=== PATIENT | male | born 1985 | race Caucasian/White ===

== ENCOUNTER 2018-06-13 05:52 | Inpatient (IN) ==
[2018-06-14] MEDS ORDERED: Aluminum/Magnesium/Simethacone Susp 30 ML UDC PO PRN (02:54)
[2018-06-14] MEDS ORDERED: Acetaminophen 325 MG Tablet PO PRN (02:54)
--- NOTE | 2018-06-14 07:48 | P.HPPSY ---
Provisional Diagnosis Admission Date: June 13, 2018 07:54 [place] I.: Major depressive disorder Competence Certification of Person's Competence To Provide Express and Informed Consent I have personally examined Dante Lu, a person being served at [facility] on, June 14, 2018 0734. Express and informed consent means consent voluntarily given in writing, by a competent person, after sufficient explanation and disclosure of the subject matter involved to enable the person to make a knowing and willful decision without any element of force, fraud, deceit, duress, or other form of constraint or coercion. This person is 18 years of age or older, is not now known to be incompetent to consent to treatment with a guardian advocate, and does not have a health care surrogate or proxy currently making medical treatment decisions. I have found this person to be one of the following: [xxx] Competent to provide express and informed consent, as defined above, for voluntary admission to this facility and is competent to provide express and informed consent for treatment. He/she has the consistent capacity to make well reasoned, willful, and knowing decisions concerning his or her medical or mental health treatment. The person fully and consistently understands the purpose of the admission for examination/placement and is fully capable of personally exercising all rights assured under [place] [] Incompetent to provide express and informed consent to voluntary admission, and this is incompetent to provide express and informed consent to treatment. The person must be transferred to involuntary status and a petition for a guardian advocate filed with the Circuit Court. [] Refusing to provide express and informed consent to voluntary admission but is competent to provide express and informed consent for treatment. The person must be discharged or transferred to involuntary status. Form shall be completed within 24 hours of a person's arrival at the receiving facility and filed in the clinical record of each person: 1. Admitted on a voluntary basis 2. Permitted to provide express and informed consent to his/her own treatment 3. Allowed to transfer from involuntary to voluntary status 4. Prior to permitting a person to consent to his or her own treatment after having been previously found incompetent to consent to treatment. History of Present Illness Capacity: Has capacity History of Present Illness: Patient is a 32-year-old man, , employed, domiciled with fianc and fianc's 2 children, with a past psychiatric history of depression, no previous psychiatric admissions, no previous suicide attempt or self- injurious behavior, no outpatient mental health provider, with no significant past medical history, substance use history significant for daily marijuana use , with the cocaine use, occasional alcohol use, who was transferred from local hospital under [facility] act due to recent suicide attempt which patient attempted to shoot himself in the head with a firearm but had jammed in the context of recent cocaine intoxication which patient was transferred to the inpatient psychiatry for further evaluation and management. As per [facility] act patient had reported having attempted to shoot himself in the head with a firearm but had jammed. Patient was found lying hospital bed noted B, cooperative. Patient states that he had run out of his depression medications specifically Prozac 4 weeks ago after having been on this medication for 2 months. Patient mentions having gone to the ER to request refills of his medications and had mentioned during evaluation of a suicide attempt a week prior when she had attempted to shoot himself with a firearm but had jammed. 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 Patient mentions having been feeling depressed since the loss of his son 7 years ago which he reports have not sought out treatment after his loss. He mentions that it is oriented continues to contribute to his depression as well as fleeting suicidal ideation since that time. Patient reports having had suicide ideation and attempt on that occasion as stated above and has not resume to have suicide ideation since. Patient mentions that he believes that depression from the loss of his son along with recent cocaine intoxication had contributed to his suicide attempt. Patient reports sleeping well, good appetite energy concentration, reports his depression is usually 5 out of 10, denies any perceptional service of delusions, rest of psychiatric review of systems negative. Patient mentions having been visited by his fiance , currently wanted to resume his medications, worried about resuming his work upon discharge, continues to report feeling depressed with denying any suicide ideations at this time. Family psychiatric history: Denies Past psychiatric history: Previous psychiatric diagnoses depression, no prior psychiatric hospitalizations, no previous suicide attempts, no previous self- injurious behavior. Patient denies any history of abuse. Patient has no mental health outpatient mental health provider, patient reports previous medication trials include Prozac which was prescribed to him in the ER, had taken for 2 months and ran out 4 weeks ago as stated above. Substance use history: Tobacco use (+), occasional alcohol use, once per month, daily marijuana use, cocaine use once per week last time being for 5 days ago. Patient denies any recent detox or rehabilitation programs. Past medical history: Denies Allergies: NKDA Social history: Legally but currently , domiciled with jonathan and jonathan's 2 children, employed, denies any background, denies any access to firearms at this time which will need to be verified with josefina. - Inpatient Certification I certify that the inpatient services were ordered in accordance with Medicare regulations governing the order. This includes certification that hospital inpatient services are reasonable and necessary and in the case of services not specified as inpatient-only under 42 CFR 419.22(n), that they are appropriately provided as inpatient services in accordance to with the 2-midnight benchmark under 43 CFR 412.3(e) I certify that inpatient psychiatric hospital services are medically necessary. Evaluation and treatment and/or diagnostic testing are expected to improve the patient's condition. The patient needs on a daily basis, active treatment furnished directly by or requiring the supervision of inpatient psychiatric facility personnel. Estimated Total Length of Stay (Days): 5 Plans for Post Hospital Care: Home Review of Systems All other systems reviewed negative except as stated in HPI PMFSH - History History Provided By: Patient, Medical Record - Tobacco History Second Hand Smoke Exposure: No Smoking Status: Never smoker - Alcohol History How Often Do You Have a Drink Containing Alcohol: Never - Substance Use History Substance History: Active Abuse - Substance Use Type Marijuana Status: Active Route Used: Inhalation Reason for Use: Calm Down, Feels Good, Get High Quality Measures - Psychiatric History Psychological trauma history: Denies Violence risk to others in the last 6 months: Low Violence risk to self in the last 6 months: Elevated due to ongoing depression as well as previous suicide attempt. - Substance Abuse History Drug or alcohol use in the past 12 months: See HPI - Patient Strengths Patient's strengths (minimum of 2): Verbal and communicative Medications and Allergies Active Medications: Active Medications Acetaminophen (Tylenol) 650 mg PO Q4H PRN PRN Reason: Pain 1-5 or Temp >101F Al Hydrox/Mg Hydrox/Simethicone (Mag-Al Plus Susp Liq) 30 ml PO Q6H PRN PRN Reason: DYSPEPSIA Al Hydroxide/Mg Hydroxide (Milk Of Magnesia Liq) 30 ml PO Q12H PRN PRN Reason: Mild Constipation Diphenhydramine HCl (Benadryl) 50 mg PO HS PRN PRN Reason: INSOMNIA Diphenhydramine HCl (Benadryl Inj) 50 mg IM HS PRN PRN Reason: INSOMNIA Fluoxetine HCl (Prozac) 20 mg PO DAILY YVETTE Hydroxyzine HCl (Atarax) 50 mg PO Q6H PRN PRN Reason: ANXIETY Nicotine (Habitrol 21 Mg Patch.24 Hr) 1 patch T-DERMAL DAILY YVETTE Patch Removal (Remove Old Patch) 1 each T-DERMAL HS YVETTE Allergies Allergy/AdvReac Type Severity Reaction Status Date / Time No Known Allergies Allergy Unverified 06/13/18 13:23 Exam Vital signs: Vital Signs 06/13/18 09:59 06/13/18 17:54 06/13/18 17:58 Temperature 98.0 F Pulse Rate 72 84 84 Respiratory Rate 18 17 17 Blood Pressure 112/72 125/82 123/82 Pulse Oximetry 100 98 98 06/14/18 05:44 Temperature 97.7 F Pulse Rate 69 Respiratory Rate 17 Blood Pressure 130/71 Pulse Oximetry 99 Intake & Output 06/13/18 06/14/18 06/14/18 18:59 06:59 18:59 Weight 87.1 kg - Constitutional no acute distress, cooperative Mental Status Examination Appearance: Disheveled Consciousness: Alert Orientation: x4 Motor Activity: Normal gait Speech: Unremarkable Language: Adequate Fund of Knowledge: Inadequate Attention and Concentration: Adequate Memory: Unremarkable Mood: Sad Affect: Sad Thought Process & Associations: Intact, Linear Thought Content: Appropriate Hallucination Type: None Delusion Type: None Suicidal Ideation: Yes (Denies at this time) Suicidal Plan: No Suicidal Intention: No Homicidal Ideation: No Homicidal Plan: No Homicidal Intention: No Insight: Fair Judgment: Impulsive Assessment and Plan - Assessment (1) Major depressive disorder Code(s): F32.9 - Major depressive disorder, single episode, unspecified Status : Acute (2) Cannabis abuse, daily use Code(s): F12.10 - Cannabis abuse, uncomplicated Status: Acute (3) Cocaine use Code(s): F14.90 - Cocaine use, unspecified, uncomplicated Status: Acute - Plan Plan: Estimated LOS: [] days Patient is a 32-year-old man who carries diagnoses depression, no previous psychiatric admissions, no previous suicide attempt or self-injurious behavior, who was brought under Vela act after having reported a suicide attempt a week prior to his ED visit which she attempted to shoot himself with a firearm which the firearm had jammed it was transferred to the inpatient psychiatry for further further evaluation and management. Patient at this time noted to have significant stressors to include the loss of her son several years ago which she is currently attempting to cope with along with ongoing cocaine use and marijuana use which have contributed to his recent suicide attempt as well along with having run out of his medications. Patient will resume fluoxetine 20 mg p.o. daily for depression, we will have diphenhydramine 50 mg p.o. at bedtime as needed insomnia as well as hydroxyzine 50 mg every 6 hours as needed anxiety. Collateral formation pending. Social work intervention for psychosocial assessment. We will transfer patient to 26[address] unit , as patient appropriate for this unit. Continue to monitor mood and behavior. Patient agrees to sign voluntary admission, has capacity to consent for treatment. Discharge planning a progress. Justification for Continued Inpatient Stay: At risk of further decompensation a lower level of care. (1) Major depressive disorder Qualifiers: Major depression recurrence: single episode Active/Remission status: currently active Major depression episode severity: severe Psychotic features : without psychotic features Qualified Code(s): F32.2 - Major depressive disorder, single episode, severe without psychotic features
[2018-06-14] MEDS: FLUoxetine 20 MG Capsule PO SCH (09:42)
[2018-06-15] MEDS: FLUoxetine 20 MG Capsule PO SCH (09:44)
[2018-06-15 11:03] LABS: Calcium 8.5 mg/dL (8.5-10.1); Carbon Dioxide 27.3 meq/L (21.0-32.0); Potassium 3.9 meq/L (3.5-5.1)
[2018-06-15 11:06] LABS: Chol/HDL Ratio 5.96 Ratio
[2018-06-15 11:59] LABS: Hemoglobin A1c 5.7 % (4.3-6.0)
--- NOTE | 2018-06-15 12:43 | ECG ---
Date Performed: 06/14/2018 Time Performed: 12:27:46 PTAGE: 32 years EKG: Sinus rhythm POSSIBLE RIGHT VENTRICULAR CONDUCTION DELAY BORDERLINE ECG NO PREVIOUS TRACING DOCTOR: Balwinder Loya Interpretating Date/Time 06/15/2018 12:42:17
--- NOTE | 2018-06-15 14:03 | P.PNPSY ---
Subjective Remarks: Patient was seen and case discussed with nursing. Patient was just admitted for suicidal ideation with an attempt with a gun. Patient minimizes her suicide attempt and claims that the gun is "thrown in the garbage." He denies any other guns at home. He is perseverant on discharge. Mental Status Examination Appearance: Disheveled Consciousness: Alert Orientation: x4 Motor Activity: Normal gait Speech: Unremarkable Language: Adequate Fund of Knowledge: Inadequate Attention and Concentration: Adequate Memory: Unremarkable Mood: Sad, Oppositional Affect: Sad Thought Process & Associations: Intact, Linear Thought Content: Appropriate Hallucination Type: None Delusion Type: None Suicidal Ideation: No (Denies at this time) Suicidal Plan: No Suicidal Intention: No Homicidal Ideation: No Homicidal Plan: No Homicidal Intention: No Insight: Poor Judgment: Poor Assessment and Plan - Assessment (1) Major depressive disorder Code(s): F32.9 - Major depressive disorder, single episode, unspecified Status : Acute (2) Cannabis abuse, daily use Code(s): F12.10 - Cannabis abuse, uncomplicated Status: Acute (3) Cocaine use Code(s): F14.90 - Cocaine use, unspecified, uncomplicated Status: Acute - Plan Plan: There appears to be a discharge order place for tomorrow. However, Dr. Betancourt is not here today or tomorrow to evaluate the patient. Given patient's potentially lethal attempt and evasive interview; we will cancel the discharge for tomorrow and let the psychiatrist decide on Sunday Justification for Continued Inpatient Stay: Patient would decompensate in a less restrictive setting (1) Major depressive disorder Qualifiers: Major depression recurrence: single episode Active/Remission status: currently active Major depression episode severity: severe Psychotic features : without psychotic features Qualified Code(s): F32.2 - Major depressive disorder, single episode, severe without psychotic features
[2018-06-16] MEDS: FLUoxetine 20 MG Capsule PO SCH (09:42)
--- NOTE | 2018-06-16 12:22 | P.DSPSY ---
Psychiatry Discharge Summary Inpatient Psychiatric care?: Yes Advance Directives: No Reason for Unknown:: Other Mental Health Advance Directive: No Health Care Proxy: No - Admission Admission Date: June 13, 2018 07:54 - Admission Diagnosis (1) Major depressive disorder Code(s): F32.9 - Major depressive disorder, single episode, unspecified Brief History: Patient is a 32-year-old man, , employed, domiciled with jonathan and jonathan's 2 children, with a past psychiatric history of depression, no previous psychiatric admissions, no previous suicide attempt or self- injurious behavior, no outpatient mental health provider, with no significant past medical history, substance use history significant for daily marijuana use , with the cocaine use, occasional alcohol use, who was transferred from local hospital under [facility] act due to recent suicide attempt which patient attempted to shoot himself in the head with a firearm but had jammed in the context of recent cocaine intoxication which patient was transferred to the inpatient psychiatry for further evaluation and management. As per Vela act patient had reported having attempted to shoot himself in the head with a firearm but had jammed. Patient was found lying hospital bed noted B, cooperative. Patient states that he had run out of his depression medications specifically Prozac 4 weeks ago after having been on this medication for 2 months. Patient mentions having gone to the ER to request refills of his medications and had mentioned during evaluation of a suicide attempt a week prior when she had attempted to shoot himself with a firearm but had jammed. 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 Patient mentions having been feeling depressed since the loss of his son 7 years ago which he reports have not sought out treatment after his loss. He mentions that it is oriented continues to contribute to his depression as well as fleeting suicidal ideation since that time. Patient reports having had suicide ideation and attempt on that occasion as stated above and has not resume to have suicide ideation since. Patient mentions that he believes that depression from the loss of his son along with recent cocaine intoxication had contributed to his suicide attempt. Patient reports sleeping well, good appetite energy concentration, reports his depression is usually 5 out of 10, denies any perceptional service of delusions, rest of psychiatric review of systems negative. Patient mentions having been visited by his fiance , currently wanted to resume his medications, worried about resuming his work upon discharge, continues to report feeling depressed with denying any suicide ideations at this time. Family psychiatric history: Denies Past psychiatric history: Previous psychiatric diagnoses depression, no prior psychiatric hospitalizations, no previous suicide attempts, no previous self- injurious behavior. Patient denies any history of abuse. Patient has no mental health outpatient mental health provider, patient reports previous medication trials include Prozac which was prescribed to him in the ER, had taken for 2 months and ran out 4 weeks ago as stated above. Substance use history: Tobacco use (+), occasional alcohol use, once per month, daily marijuana use, cocaine use once per week last time being for 5 days ago. Patient denies any recent detox or rehabilitation programs. Past medical history: Denies Allergies: NKDA Social history: Legally but currently , domiciled with jonathan and jonathan's 2 children, employed, denies any background, denies any access to firearms at this time which will need to be verified with [facility]. Tobacco Use In Past 30 Days: No How Often Do You Have a Drink Containing Alcohol: Never Hospital Course: The patient was admitted by Dr. Betancourt due to depressive symptoms and self injury behavior. Appropriate safety measures were taken. The patient was a started in psychotropics for depression. Since they want the patient minimized symptomatology of depression and suicide attempt. He was fighting for his discharge, his was in agreement with him. At some point the patient became quite belligerent and manipulative. He was goal-directed and future oriented, and stated that he had to be discharged because he wanted to work on Sunday he had a high chance to be fired from his job. He was compliant his medications, no significant side effects reported. Today on discharge the patient is calm, cooperative, denies a dermatology of depression, denies anxiety , denies lester and psychosis. - Discharge Discharge Date: 06/16/18 - Discharge Diagnosis (1) Major depressive disorder Code(s): F32.9 - Major depressive disorder, single episode, unspecified Status : Acute Discharge Disposition: Home - Discharge Time > 30 minutes Mental Status Examination Appearance: Disheveled Consciousness: Alert Orientation: x4 Motor Activity: Normal gait Speech: Unremarkable Language: Adequate Fund of Knowledge: Inadequate Attention and Concentration: Adequate Memory: Unremarkable Mood: Sad, Oppositional Affect: Sad Thought Process & Associations: Intact, Linear Thought Content: Appropriate Hallucination Type: None Delusion Type: None Suicidal Ideation: No (Denies at this time) Suicidal Plan: No Suicidal Intention: No Homicidal Ideation: No Homicidal Plan: No Homicidal Intention: No Insight: Poor Judgment: Poor Discharge/Advance Care Plan - Results Vital Signs: Last Vital Signs Temp 97.6 F 06/16/18 05:40 Pulse 89 06/16/18 05:40 Resp 18 06/16/18 05:40 BP 152/79 H 06/16/18 05:40 Pulse Ox 96 06/16/18 05:40 Lab Results: Abnormal Lab Results 06/15/18 09:56 Hemoglobin A1c 5.7 Laboratory Results Hemoglobin A1c 5.7 % (4.3-6.0) 06/15/18 09:56 Triglycerides 164 mg/dL (42-150) H 06/15/18 09:07 Cholesterol 155 mg/dL (120-200) 06/15/18 09:07 LDL Cholesterol, Calc 96 mg/dL (0-99) 06/15/18 09:07 HDL Cholesterol 26.0 mg/dL (40.0-60.0) L 06/15/18 09:07 Summary of Procedures: There is no procedure Pending Results: None - Medications Number of antipsychotic medications at discharge: 0 - Discharge Care Plan Goals to Promote Your Health: * To prevent worsening of your condition and complications * To maintain your health at the optimal level Directions to Meet Your Goals: Take your medications as prescribed Follow your dietary instruction Follow activity as directed Keep your appointments as scheduled Take your immunizations and boosters as scheduled If your symptoms worsen call your PCP, if no PCP go to Urgent Care Center or Emergency Room For 14/05 questions related to your inpatient stay or results of tests pending at discharge, please contact Dr. Gama Gleason MD at Smoking is Dangerous to Your Health. Avoid second hand smoking (1) Major depressive disorder Qualifiers: Major depression recurrence: single episode Active/Remission status: currently active Major depression episode severity: severe Psychotic features : without psychotic features Qualified Code(s): F32.2 - Major depressive disorder, single episode, severe without psychotic features (1) Major depressive disorder Qualifiers: Major depression recurrence: single episode Active/Remission status: currently active Major depression episode severity: severe Psychotic features : without psychotic features Qualified Code(s): F32.2 - Major depressive disorder, single episode, severe without psychotic features
== END 2018-06-16 10:55 | disposition home or self-care (01) ==
LOC: H270 07:54 → H260 06-14 12:50
PROVIDERS: ADMIT Student in an Organized Health Care Education/Training Program; ATTEND Student in an Organized Health Care Education/Training Program